=== PATIENT | male | born 1930 ===

== ENCOUNTER → 2020-05-11 | Outpatient (CLI) | payer MEDICARE | LOC: LAB 15:05 → LAB SHORT 15:05 | DX: D04.4 Carcinoma in situ of skin of scalp and neck (principal); D04.12 Carcinoma in situ of skin of left eyelid, including canthus; C44.42 Squamous cell carcinoma of skin of scalp and neck; D48.5 Neoplasm of uncertain behavior of skin | CPT/HCPCS: 88341; 88342 ==